=== PATIENT | female | born 1975 | race Caucasian/White ===

== ENCOUNTER 2017-07-27 11:22 | Emergency (ER) | payer SELFPAY ==
[~2017-07-27] VITALS: Ht 157.5 cm; Wt 62.0 kg
[2017-07-27 16:27] LABS: BASOPHILS % 0.8 % (0.0-2.0); HEMATOCRIT. 39.3 % (36.0-48.0); HEMOGLOBIN. 13.1 g/dL (12.0-16.0); LYMPHOCYTES % 22.9 % (20.0-50.0); MEAN CORPUSCULAR HEMOGLOBIN 28.8 pg (28.0-32.0); MEAN CORPUSCULAR VOLUME 86.2 fL (81.0-99.0); MEAN PLATELET VOLUME 7.6 fl (7.4-10.4); MONOCYTES % 7.9 % (2.0-8.0); NEUTROPHILS % 66.4 % (40.0-76.0); PLATELET 434 x1000/uL (130-400); RED BLOOD CELL COUNT 4.56 mill/uL (4.2-5.4); RED CELL DISTRIBUTION WIDTH 13.6 % (11.6-14.6)
[2017-07-27 16:29] LABS: CHLORIDE 102 mEq/L (98-107)
[2017-07-27 16:40] LABS: B-HCG QUANTITATIVE < 1 mIU/mL (<3); CARBON DIOXIDE 28 mEq/L (21-32)
[2017-07-27 17:38] LABS: CLARITY URINE CLOUDY (CLEAR); COLOR URINE ORANGE (YELLOW); KETONES URINE NEGATIVE (NEGATIVE); LEUKOCYTE ESTERASE URINE 3+ (NEGATIVE); NITRITE URINE POSITIVE (NEGATIVE); OCCULT BLOOD URINE TRACE (NEGATIVE); PH URINE 5.5 (4.5-8.0); PROTEIN URINE NEGATIVE (NEGATIVE); SPECIFIC GRAVITY URINE 1.012 (1.005-1.030); UROBILINOGEN URINE 0.2 E.U./dL (0.2-1.0)
[2017-07-27 20:17] VITALS: BP 128/84
== END 2017-07-27 20:19 | disposition home or self-care (01) ==
LOC: ER 13:18
DX: D25.1 Intramural leiomyoma of uterus (principal); N39.0 Urinary tract infection, site not specified; D72.829 Elevated white blood cell count, unspecified; Z90.49 Acquired absence of other specified parts of digestive tract
CPT/HCPCS: 36415; 76830; 76856; 80053; 81001; 84702; 85025; 86850; 86900; 99285